=== PATIENT | female | born 1950 | race Caucasian/White ===

== ENCOUNTER → 2017-10-24 | Outpatient (CLI) | payer MEDICARE, OTHER ==
--- NOTE | 2017-10-24 17:10 | PN ---
PROGRESS NOTE Janna is 67 and coming in for her annual check regarding ESTELA treatment. The patient was diagnosed having mild ESTELA with an AHI of 13.8, and she was given CPAP therapy at a pressure of 9. On today's evaluation, I noted that the patient is not using her CPAP machine at all, and she has not used it over the past 6 months. She thought that she was having some difficulty tolerating the Mirage FX nose mask and she is looking for alternative masks. Her weight has been essentially stable and her BMI is 50.7. She is symptomatic . She snores. She is tired and sleepy during the day. She is willing to go back on the treatment. She is requesting different forms of masks. PHYSICAL EXAMINATION: BP is 138/70, pulse 72, respiration 16, temperature 97.1. BMI is 50.7. Weight is 260. Height is 5 feet 0 inches. Saturation 97% on room air. GENERAL APPEARANCE: Calm, comfortable. Head is atraumatic, normocephalic. Neck is supple. There is no JVD. There is no goiter or neck masses. Mallampati class 4. LUNGS: Clear to auscultation. Heart sounds have regular rate and rhythm. Normal S1, S2. No S3, S4. No murmurs. Abdomen is soft, nontender. No organomegaly. EXTREMITIES: No edema. No cyanosis or clubbing. IMPRESSION: 1. Symptomatic obstructive sleep apnea with an AHI of 13.8. The patient has not been utilizing her CPAP. 2. Increased sleepiness and tiredness and fatigue secondary to poor CPAP compliance. PLAN: I offered the patient 2 different masks. The first mask was a DreamWear, small size. The other one was Nuance Pro nose pillows. She will try both and she will come and see me back in 3 months' time in followup. Meanwhile, I switched the patient from a fixed CPAP to an auto CPAP and that may potentially also help her with her overall tolerability. Encourage weight loss. She has lost a few pounds. We will see her back in 3 months' time in followup. VASQUEZ / JUNIOR: [id number] /
== END | disposition home or self-care (01) ==
LOC: SLEEP 13:40
PROVIDERS: ATTEND Internal Medicine Critical Care Medicine
DX: G47.33 Obstructive sleep apnea (adult) (pediatric) (principal); G47.10 Hypersomnia, unspecified